=== PATIENT | female | born 1995 | race Caucasian/White ===

== ENCOUNTER 2017-04-08 15:24 | Emergency (ER) | payer OTHER ==
[~2017-04-08] VITALS: Ht 167.6 cm; Wt 117.3 kg
[2017-04-08] MEDS ORDERED: IBUP200C10 PO (15:36)
--- NOTE | 2017-04-08 16:14 | REP ---
CT Head without contrast HISTORY: Trauma COMPARISON: None There is no intraparenchymal hemorrhage, acute infarct, mass or midline shift. The ventricular system is normal in appearance. There is no extra cerebral collection. There is no fracture. The visualized sinuses are clear. IMPRESSION: There is no intracranial lesion. Signed by Cheko Arredondo MD 04/08/2017 04:05 P
--- NOTE | 2017-04-08 16:17 | REP ---
CT cervical spine without contrast HISTORY: Trauma COMPARISON: None There is no acute fracture or subluxation. There is no disc bulge or herniation. The spinal canal and neural foramina are patent. The intervertebral discs and vertebral bodies are normal in height. There is loss of the normal lordotic curve. IMPRESSION: There is no acute fracture or subluxation. Signed by Cheko Arredondo MD 04/08/2017 04:09 P
[2017-04-08] MEDS ORDERED: NORCO, ANEXSIA 5/325MG TABLET (HYDROcodone/ACETAMINOPHEN) PO ONE (17:30)
--- NOTE | 2017-04-08 17:53 | REP ---
Chest x-ray: Two views. History: Trauma. Right clavicle pain. Comparison study: No comparison study. Findings: The lungs are well inflated and free of infiltrate. The pleural angles are sharp. The heart size is normal. Pulmonary vasculature is not increased. No significant bony abnormality is seen. Impression: Negative chest x-ray. Signed by Watson Barnett MD 04/08/2017 08:31 P
[2017-04-08] MEDS ORDERED: NORCOTAB PO (18:01)
[2017-04-08 18:12] VITALS: BP 132/88
== END 2017-04-08 18:18 | disposition home or self-care (01) ==
LOC: M ED 15:24
DX: S16.1XXA Strain of muscle, fascia and tendon at neck level, initial encounter (principal); V49.59XA Passenger injured in collision with other motor vehicles in traffic accident, initial encounter; Y92.410 Unspecified street and highway as the place of occurrence of the external cause; Y93.89 Activity, other specified; Y99.8 Other external cause status; F17.210 Nicotine dependence, cigarettes, uncomplicated

== ENCOUNTER → 2017-09-16 | Outpatient (CLI) | payer OTHER | LOC: M RAD 07:21 | DX: R10.13 Epigastric pain (principal) | CPT/HCPCS: 76705 ==

== ENCOUNTER → 2018-02-14 | Outpatient (CLI) | payer OTHER, SELFPAY | LOC: M LRY 11:13 | DX: R05 Cough (principal) | CPT/HCPCS: 71046 ==

== ENCOUNTER → 2018-02-14 | Outpatient (REF) | payer OTHER | LOC: M SFHCLERA 11:20 | DX: R05 Cough (principal) ==

== ENCOUNTER → 2018-02-27 | Outpatient (REF) | payer OTHER, SELFPAY ==
[2018-02-27 17:12] LABS: APPEARANCE, URINE HAZY (CLEAR); BACTERIA, URINE AUTO NEGATIVE (NEGATIVE); BILIRUBIN, URINE AUTO NEGATIVE (NEGATIVE); BLOOD, URINE BLOOD NEGATIVE (NEGATIVE); COLOR, URINE YELLOW (YELLOW); GLUCOSE, URINE (UA) AUTO NEGATIVE (NEGATIVE); KETONE, URINE AUTO NEGATIVE (NEGATIVE); LEUKOCYTE ESTERASE, URINE AUTO 2+ (NEGATIVE); MUCUS, URINE SMALL (NEGATIVE); NITRITE, URINE AUTO NEGATIVE (NEGATIVE); PROTEIN, URINE AUTO NEGATIVE (NEGATIVE); RBC, URINE AUTO 5 /HPF (0-3); SPECIFIC GRAVITY URINE AUTO 1.027 (1.002-1.035); SQUAMOUS EPITHELIAL CELL UR AU 3 /HPF (0-6); UROBILINOGEN, URINE AUTO 0.2 mg/dL (0.0-2.0); WBC, URINE AUTO 38 /HPF (0-3)
[2018-02-27 18:48] LABS: CHLAMYDIA DNA AMPLIFICATION POSITIVE (NEGATIVE); GC DNA AMPLIFICATION NEGATIVE (NEGATIVE)
== END ==
LOC: M LAB REF 16:34
DX: N39.0 Urinary tract infection, site not specified (principal)
CPT/HCPCS: 81001

== ENCOUNTER → 2018-11-25 | Outpatient (REF) | payer BC, MEDICAID, OTHER ==
[~2018-11-25] MED LIST: HYDR-3715 PO; IBUP200C25 PO
== END ==
LOC: M LAB REF 17:18
PROVIDERS: ATTEND Advanced Practice Midwife
DX: Z12.4 Encounter for screening for malignant neoplasm of cervix (principal)

== ENCOUNTER → 2018-12-01 | Outpatient (CLI) | payer BC, MEDICAID | LOC: M SMT 08:34 | PROVIDERS: ATTEND Advanced Practice Midwife | DX: Z34.82 Encounter for supervision of other normal pregnancy, second trimester (principal); Z3A.00 Weeks of gestation of pregnancy not specified ==

== ENCOUNTER → 2018-12-10 | Outpatient (CLI) | payer MEDICAID, OTHER | LOC: M SMT 14:36 | PROVIDERS: ATTEND Advanced Practice Midwife | DX: Z36.89 Encounter for other specified antenatal screening (principal) ==

== ENCOUNTER → 2018-12-31 | Outpatient (CLI) | payer BC, MEDICAID, OTHER ==
--- NOTE | 2019-01-01 08:21 | REP ---
Obstetric ultrasound for anatomy: There is a single intrauterine gestation. position is variable. heart rate is 150 beats per minute. Cervix measures 4.4 cm length. The placenta is left lateral. There is no placenta previa or abruptio. The placenta is grade zero maturity. The amniotic fluid volume subjectively is normal. Gestational age by today's ultrasound is 19 weeks 5 days/DAVID 05/22/2019. Gestational age by LMP is 19 weeks 4 days/DAVID of 05/23/2019. weight is 315 grams/0 pounds, 11 ounces. This is the 54th percentile for 19 weeks 4 days. The following anatomic structures are identified and are unremarkable: Cranium, choroid plexus, cavum septum pellucidum, facial profile, lungs, diaphragm, stomach, cord insertion, three-vessel cord, bladder and upper lower extremities. The following anatomic structures could not be i satisfactorily visualize because of position: Cerebellum, upper lip, four-chamber heart, cardiac right and left ventricular outflow tracts, kidneys and spine. A followup study dedicated to these structures might be considered. Otherwise, there are no anomalies. Electronically Signed by Rudolph Martinez MD 01/01/2019 08:12 A
== END ==
LOC: M RAD 17:12
PROVIDERS: ATTEND Advanced Practice Midwife
DX: O99.212 Obesity complicating pregnancy, second trimester (principal); E66.9 Obesity, unspecified; Z3A.19 19 weeks gestation of pregnancy

== ENCOUNTER → 2019-02-06 | Outpatient (CLI) | payer MEDICAID ==
[~2019-02-06] MED LIST changes: +ACET-683 PO; +IBUP80TA PO; +MAPA500T2 PO; +PRENTAB9 PO; +PROV108A INH; +TUMS500C PO; +ZOFR4TAB16 PO; +ZYRTTAB8 PO
--- NOTE | 2019-02-06 19:37 | REP ---
FOLLOW-UP OB ULTRASOUND: 02/06/2019. Comparison: 12/31/2018. Clinical history: Incomplete anatomic screening on the 12/31/2018 study. Findings: Single intrauterine gestation in vertex position. There is an anterior grade 0 placenta without previa or abruption. Amniotic fluid volume is visually normal. The cervix is 4.8 cm long and closed. biometry: BPD 6 cm = 24 weeks 3 daysHC 22.4 cm = 24 weeks 3 daysAC 19.5 cm = 24 weeks 1 dayFL 4.6 cm = 25-week 2 daysHL 4 cm = 24 weeks 3 days. This gives average ultrasound age 24 weeks 4 days with EDC 05/25/2019. By initial ultrasound she is 25 weeks with EDC 05/22/2019. Estimated weight 718 grams or 1 pound 9 ounces is 36th percentile based on established dating. Heart rate 155 and regular. Cranial vault, choroid plexus, thalami, cavum septum pellucidum, cerebellum and cisterna magna were unremarkable. The nose and lips view are seen but the profile view is still not adequately visualized. lungs were intact. The four-chamber heart view and ventricular outflow tracts are again suboptimally visualized due to position. Diaphragm, left-sided stomach bubble, cord insertion, three-vessel cord, kidneys and bladder, spine in transverse and longitudinal projections and the upper lower extremities were unremarkable. Impression: 1. Single intrauterine gestation in vertex presentation with closed 4.8 cm long cervix, visually normal amniotic fluid volume and anterior grade 0 placenta without previa or abruption. 2. Size and dates show normal interval growth with heart rate 155. 3. Anatomy screen shows nose and lips view, cerebellum, kidneys and spine to satisfaction, however, the four-chamber heart view, ventricular outflow tracts and the profile view of the face are still not adequately evaluated. Electronically Signed by John Kennedy MD 02/06/2019 08:30 P
== END ==
LOC: M RAD 17:28
PROVIDERS: ATTEND Advanced Practice Midwife
DX: O99.212 Obesity complicating pregnancy, second trimester (principal); E66.9 Obesity, unspecified; Z3A.24 24 weeks gestation of pregnancy

== ENCOUNTER → 2019-02-17 | Outpatient (CLI) | payer OTHER ==
[~2019-02-17] MED LIST changes: -ACET-683 PO; -IBUP80TA PO; -MAPA500T2 PO; -PRENTAB9 PO; -PROV108A INH; -TUMS500C PO; -ZOFR4TAB16 PO; -ZYRTTAB8 PO
[2019-02-17 17:15] LABS: BASO % 0.3 % (0.0-1.0); EOS # 0.1 10^3/uL (0.0-0.5); EOS % 0.9 % (0.0-3.0); HEMATOCRIT 39.2 % (36.0-47.0); HEMOGLOBIN 12.8 g/dl (12.0-15.5); LYMPH % 19.4 % (24.0-44.0); MEAN CORPUSCULAR HEMOGLOBIN 30.4 pg (27.0-33.0); MEAN CORPUSCULAR HGB CONC 32.7 g/dl (32.0-36.5); MEAN CORPUSCULAR VOLUME 93.1 fl (80.0-96.0); MONO # 0.6 10^3/uL (0.0-0.8); NEUTROPHILS # 7.6 10^3/uL (1.5-8.5); NEUTROPHILS % 72.4 % (36.0-66.0); PLATELET COUNT, AUTOMATED 235 10^3/uL (150-450); RED BLOOD COUNT 4.21 10^6/uL (4.00-5.40); WHITE BLOOD COUNT 10.4 10^3/uL (4.0-10.0)
== END ==
LOC: M SMT 12:59
PROVIDERS: ATTEND Advanced Practice Midwife
DX: O99.212 Obesity complicating pregnancy, second trimester (principal); Z3A.00 Weeks of gestation of pregnancy not specified
CPT/HCPCS: 36415; 82950; 85025; 86850; 86900; 86901; J2790

== ENCOUNTER → 2019-02-27 | Outpatient (CLI) | payer MEDICAID ==
--- NOTE | 2019-02-28 09:27 | REP ---
Obstetric sonography: History: Supervision of followup anatomy, facial profile, four-chamber heart and outflow tracts. Sonographic findings: Scanning through the gravid uterus demonstrates a viable single intrauterine gestation in a cephalic lie. motion is observed and heart rate is recorded at 161 beats per minute. A grade 0 anterior placenta is seen without evidence of previa or abruption. Amniotic fluid is subjectively normal. Closed cervical length measures 4.3 cm, viewed transabdominally. There has been appropriate interval growth. No extrauterine abnormalities observed. There is an echogenic focus in the left and right ventricle likely chordae tendineae. The following anatomic structures are identified today and felt to be unremarkable: cranium, cavum, cerebellum and posterior fossa, face and profile, lungs, four-chamber heart with left and right ventricular outflow tract views, diaphragm, left-sided stomach, abdominal wall cord insertion, three-vessel cord, kidneys and bladder, lower extremities. Biometry chart: BPD 6.8 cm = 27 weeks 2 days Head circumference 25.7 cm = 28 weeks 0 days Abdominal circumference 24.1 cm = 28 weeks 3 days Femur length 5.2 cm = 27 weeks 5 days Humeral length 4.7 cm = 27 weeks 5 days HC/AC ratio normal 1.07. Cephalic index normal 0.72. Estimated weight 1170 grams, 2 pounds 9 ounces, 46th percentile for 27 week 6 days. VALE normal 14.0 cm. S/D ratio normal 3.85. Impression: Viable single intrauterine gestation at 27 weeks 6 days by today's composite sonographic criteria. Expected gestational age estimate based on prior sonography is 28 weeks 0 days. DAVID by prior sonography 22 May 2019. Appropriate interval growth. In conjunction with the prior study, anatomic survey is felt to be complete. Electronically Signed by Watson Barnett MD 02/28/2019 09:46 A
== END ==
LOC: M RAD 17:25
PROVIDERS: ATTEND Obstetrics & Gynecology
DX: Z34.82 Encounter for supervision of other normal pregnancy, second trimester (principal); Z3A.27 27 weeks gestation of pregnancy

== ENCOUNTER → 2019-03-20 | Outpatient (CLI) | payer MEDICAID ==
--- NOTE | 2019-03-20 15:56 | REP ---
Obstetric sonography: History: 30+ weeks with injury in a fall. Biophysical profile. Findings: Limited stature sonography is performed. A single living intrauterine fetus is seen in a cephalic lie. Placenta is anterior grade 1 without evidence of previa or abruption. Closed cervical length is 6.2 cm measured transabdominally. heart rate is recorder 136 beats per minute. Amniotic fluid is subjectively low normal. VALE is 8.5 cm (8.8-23.8 cm). Biophysical profile score is eight out of a possible eight. SD ratio is normal at 3.24 are (2.50-3.50. Impression: Low normal amniotic fluid. Otherwise unremarkable limited obstetric sonography. No traumatic abnormality noted. Electronically Signed by Watson Barnett MD 03/20/2019 02:50 P
== END ==
LOC: M RAD 13:49
PROVIDERS: ATTEND Advanced Practice Midwife
DX: O9A.213 Injury, poisoning and certain other consequences of external causes complicating pregnancy, third trimester (principal); W00.9XXA Unspecified fall due to ice and snow, initial encounter; Z3A.00 Weeks of gestation of pregnancy not specified

== ENCOUNTER → 2019-03-27 | Outpatient (CLI) | payer MEDICAID ==
--- NOTE | 2019-03-27 14:12 | REP ---
Obstetric sonography: History: Elevated blood pressure. Followup anatomy. Findings: Scanning demonstrates a viable single intrauterine gestation in a cephalic lie. motion is observed and heart rate is recorded at 139 beats per minute. An anterior grade 1 placenta is seen without evidence of previa or abruption. Amniotic fluid is subjectively normal. No extrauterine abnormalities observed. There has been appropriate interval growth. Closed cervical length could not be measured due to head position. The following anatomic structures are identified and felt to be unremarkable: cranium, cavum, four-chamber heart, left-sided stomach, kidneys and bladder. Biometry chart: BPD 7.7 cm = 30 weeks 5 days Head circumference 28.2 cm = 31 weeks 0 days Abdominal circumference 26.6 cm = 30 weeks 5 days Femur length 5.9 cm = 30 weeks 6 days Humeral length 5.3 cm = 30 weeks 6 days HC/AC normal 1.06. Cephalic index normal 0.76. Estimated weight 1645 grams, 3 pounds 10 ounces, 22nd percentile for 31 weeks 6 days. VALE normal 11.9 cm. Biophysical profile score 8 out of a possible 8. S/D ratio in the umbilical cord artery by Doppler normal 3.14 Impression: Viable single intrauterine gestation at 30 weeks 6 days by today's composite sonographic criteria. Expected gestational age estimate based on prior sonography is 32 weeks 0 days. DAVID by prior sonography May 22, 2019. Electronically Signed by Watson Barnett MD 03/27/2019 06:38 P
== END ==
LOC: M RAD 09:20
PROVIDERS: ATTEND Advanced Practice Midwife
DX: Z36.9 Encounter for antenatal screening, unspecified (principal); Z3A.30 30 weeks gestation of pregnancy

== ENCOUNTER → 2019-04-01 | Outpatient (CLI) | payer MEDICAID ==
[2019-04-01 13:19] LABS: HEMATOCRIT 42.7 % (36.0-47.0); HEMOGLOBIN 13.8 g/dl (12.0-15.5); MEAN CORPUSCULAR HEMOGLOBIN 29.8 pg (27.0-33.0); MEAN CORPUSCULAR HGB CONC 32.3 g/dl (32.0-36.5); MEAN CORPUSCULAR VOLUME 92.2 fl (80.0-96.0); PLATELET COUNT, AUTOMATED 257 10^3/uL (150-450); RED BLOOD COUNT 4.63 10^6/uL (4.00-5.40)
[2019-04-01 13:22] LABS: ALT/SGPT 22 U/L (12-78); GLOMERULAR FILTRATION RATE > 60.0 (>60); LDH LACTATE DEHYDROGENASE 142 U/L (84-246); URIC ACID 4.4 MG/DL (2.6-6.0)
== END ==
LOC: M SMT 11:03
PROVIDERS: ATTEND Advanced Practice Midwife
DX: O13.3 Gestational [pregnancy-induced] hypertension without significant proteinuria, third trimester (principal); Z3A.00 Weeks of gestation of pregnancy not specified

== ENCOUNTER → 2019-04-03 | Outpatient (CLI) | payer BC, MEDICAID ==
--- NOTE | 2019-04-03 17:30 | REP ---
OB ULTRASOUND, BIOPHYSICAL PROFILE: Real-time sonographic evaluation of the gravid uterus is performed. There is a single living intrauterine gestation. The estimated gestational age is 32 weeks 6 days, EDC 03/23/2020. Cervix is closed and measures 3.1 cm in length. heart rate 140 beats per minute. Amniotic fluid with normal limits. VALE 13.5 within normal range of 8.3 to 24.5. Biophysical profile score 8/8. SD ratio 2.11 within normal range of 2.05 to 3.05, RI 0.53 below normal range of 0.59 to 0.75. position is vertex. Placenta is anterior and grade 1 with no previa or abruption. Electronically Signed by Rudolph Waggoner MD 04/06/2019 10:12 A
== END ==
LOC: M RAD 15:12
PROVIDERS: ATTEND Advanced Practice Midwife
DX: O13.3 Gestational [pregnancy-induced] hypertension without significant proteinuria, third trimester (principal); Z3A.32 32 weeks gestation of pregnancy

== ENCOUNTER → 2019-04-16 | Outpatient (CLI) | payer MEDICAID ==
[~2019-04-16] MED LIST changes: +MAPA500T2 PO; +PRENTAB9 PO; +PROV108A INH; +TUMS500C PO; +ZOFR4TAB16 PO; +ZYRTTAB8 PO
--- NOTE | 2019-04-16 18:39 | REP ---
OB ULTRASOUND: Real-time sonographic evaluation of the gravid uterus is performed. There is a single living intrauterine gestation. The estimated gestational age is 34 weeks 5 days. EDC 05/23/2019. Today's measurements indicate appropriate growth. BPD 82 mm = 33 weeks 1 day, 27th percentile. HC 293 mm = 32 weeks 2 days, 13th percentile. AC 281 mm = 32 weeks 1 day, 12th percentile. Femur length 69 mm = 35 weeks 4 days, at the 63rd percentile. HC/AC ratio 1.04 within normal range. Estimated weight 2158 grams 22nd percentile. Cervix is closed and measures 3.8 cm in length. heart rate 136 beats per minute. Amniotic fluid with normal limits, VALE 15.7 within normal range of 8.0 to 24.9. Biophysical profile score 8/8. SD ratio 2.96 within normal range of 2.0-3.0, RI 0.66 within normal range of 0.59 to 0.75. Visualized anatomy today includes stomach, three vessel cord, kidney and bladder which are all grossly unremarkable. position is vertex. Placenta is anterior and grade 1 with no previa or abruption. Electronically Signed by Rudolph Waggoner MD 04/16/2019 06:40 P
== END ==
LOC: M RAD 16:06
PROVIDERS: ATTEND Advanced Practice Midwife
DX: O13.3 Gestational [pregnancy-induced] hypertension without significant proteinuria, third trimester (principal); Z3A.34 34 weeks gestation of pregnancy

== ENCOUNTER → 2019-04-20 | Outpatient (REF) | payer OTHER, MEDICAID | LOC: M SFHCWAGY 16:42 | PROVIDERS: ATTEND Advanced Practice Midwife | DX: Z36.85 Encounter for antenatal screening for Streptococcus B (principal); O13.3 Gestational [pregnancy-induced] hypertension without significant proteinuria, third trimester ==

== ENCOUNTER → 2019-04-24 | Outpatient (CLI) | payer MEDICAID, OTHER ==
--- NOTE | 2019-04-24 17:15 | REP ---
OB ULTRASOUND, BIOPHYSICAL PROFILE: Real-time sonographic evaluation of gravid uterus performed. There is a single living intrauterine gestation, estimated gestational age 35 weeks 6 days, EDC 05/23/2019. heart rate is 125 beats per minute. Amniotic fluid is within normal limits. The VALE is 14.7 within normal range of 7.7 - 24.9. Biophysical profile score is 8/8. S/D ratio 2.05 within normal range of 2.0 - 3.0. RI 0.51 below normal range of 0.59 - 0.75. position is vertex. Placenta is anterior and grade 1-2 with no previa or abruption. Electronically Signed by Rudolph Waggoner MD 04/27/2019 04:15 P
== END ==
LOC: M RAD 13:11
PROVIDERS: ATTEND Advanced Practice Midwife
DX: O13.3 Gestational [pregnancy-induced] hypertension without significant proteinuria, third trimester (principal)

== ENCOUNTER 2019-05-02 08:00 | Inpatient (IN) | payer MEDICAID ==
[2019-05-02] VITALS (20 sets, daily range): BP systolic 107–175; BP diastolic 59–89
[~2019-05-02] VITALS: Ht 165.1 cm; Wt 144.8 kg
[2019-05-02] MEDS ORDERED: LACTATED RINGER'S 1000 ML IV STA (11:32)
[2019-05-02 11:47] LABS: HEMOGLOBIN 14.2 g/dl (12.0-15.5); MEAN CORPUSCULAR HEMOGLOBIN 30.1 pg (27.0-33.0); MEAN CORPUSCULAR VOLUME 91.3 fl (80.0-96.0); PLATELET COUNT, AUTOMATED 222 10^3/uL (150-450); RED BLOOD COUNT 4.71 10^6/uL (4.00-5.40); WHITE BLOOD COUNT 11.7 10^3/uL (4.0-10.0)
[2019-05-02 11:54] LABS: ALT/SGPT 16 U/L (12-78); CREATININE FOR GFR 0.64 MG/DL (0.55-1.30); GLOMERULAR FILTRATION RATE > 60.0 (>60); LDH LACTATE DEHYDROGENASE 163 U/L (84-246); URIC ACID 4.9 MG/DL (2.6-6.0)
[2019-05-02] MEDS ORDERED: miSOPROStol 25 MCG 1/4 TAB (S0191) As Ordered ONE (12:08)
[2019-05-02] MEDS ORDERED: miSOPROStol 25 MCG 1/4 TAB (S0191) PV ONE ×2 (12:15→18:15)
[2019-05-02] MEDS: LR 1,000 ML IV SCH (12:48)
[2019-05-02] MEDS: ACETAMINOPHEN 500 MG TAB PO PRN (13:10)
[2019-05-03] VITALS (43 sets, daily range): BP systolic 92–151; BP diastolic 51–97
[2019-05-03] MEDS ORDERED: OXYTOCIN DRIP 30 UNITS in IV 1 EA IV SCH (07:45)
[2019-05-03] MEDS ORDERED: SLF 3 ML SYR IV PRN (08:30)
[2019-05-03] MEDS: ACETAMINOPHEN 500 MG TAB PO PRN (12:31)
[2019-05-03] MEDS: LR 1,000 ML IV SCH (12:50)
[2019-05-03] MEDS ORDERED: FENTANYL 2MCG/ML ROPIVACAINE 0.2% IN 0.9% NACL 100ML IVBAG As Ordered ONE (12:53)
[2019-05-03] MEDS ORDERED: SLF 3 ML SYR IV SCH (14:00)
[2019-05-03] MEDS ORDERED: diphenhydrAMINE INJ 50MG/ML VIAL (J1200) IV PRN (14:15)
[2019-05-03] MEDS ORDERED: ePHEDrine SULFATE 25 MG/5 ML(5MG/ML) SYRINGE IV PRN (14:15)
[2019-05-03] MEDS ORDERED: ONDANSETRON 4MG/2ML VIAL (J2405) IV PRN (14:15)
[2019-05-03] MEDS ORDERED: NALOXONE INJ 0.4 MG/1 ML VIAL (J2310) IV PRN (14:15)
[2019-05-03] MEDS ORDERED: LACTATED RINGER'S 1000 ML IV PRN (14:15)
[2019-05-03] MEDS ORDERED: EPIDURAL COMMENT XX SCH (14:15)
[2019-05-03] MEDS ORDERED: REFRIGERATOR IV KEYS XX PRN (14:15)
[2019-05-03] MEDS ORDERED: EPIDURAL/PCA KEYS XX PRN (14:15)
[2019-05-03] MEDS ORDERED: TERBUTALINE SULFATE 1 MG/ML VIAL (J3105) As Ordered ONE (18:21)
[2019-05-03] MEDS: FENTANYL/ROPIVACAINE/NACL BAG 100 ML EPIDURAL SCH ×2 (18:22→22:20)
[2019-05-03] MEDS ORDERED: TERBUTALINE SULFATE 1 MG/ML VIAL (J3105) SC ONE (18:45)
[2019-05-04] VITALS (8 sets, daily range): BP systolic 105–120; BP diastolic 56–76
[2019-05-04] MEDS ORDERED: LR 1,000 ML IV SCH (01:22)
[2019-05-04] MEDS ORDERED: OXYTOCIN DRIP 30 UNITS in IV 1 EA IV SCH (01:22)
[2019-05-04] MEDS ORDERED: ACETAMINOPHEN 500 MG TAB PO PRN (01:30)
[2019-05-04] MEDS ORDERED: ceFAZolin SOD 3 GM in IV 1 EA IV ONE (01:30)
[2019-05-04] MEDS ORDERED: DOCUSATE SODIUM 100 MG CAP PO PRN (01:30)
[2019-05-04] MEDS ORDERED: PROMETHAZINE 25 MG TAB PO PRN (01:30)
[2019-05-04] MEDS ORDERED: DIBUCAINE 1% OINTMENT 30GM TOP PRN (01:30)
[2019-05-04] MEDS ORDERED: RHOGAM 300 MCG (1500 IU) INJ (J2790) IM SCH (01:30)
[2019-05-04] MEDS ORDERED: IBUPROFEN 600 MG TAB PO PRN (01:30)
[2019-05-04] MEDS ORDERED: ONDANSETRON 4MG/2ML VIAL (J2405) IV PRN (01:30)
[2019-05-04] MEDS ORDERED: ACETAMINOPHEN TAB 650MG DOSE (2X325MG) PO PRN (01:30)
[2019-05-04] MEDS ORDERED: MEASLES,MUMPS,RUBELLA VACCINE INJ (MMR-II) (90707) SC SCH (01:30)
[2019-05-04] MEDS ORDERED: ceFAZolin SOD 2 GM in IV 1 EA IV ONE (01:45)
[2019-05-04] MEDS ORDERED: ceFAZolin SOD 1 GM in D5W MINI-BAG PLUS 50 ML IV ONE (02:30)
[2019-05-04] MEDS: PRENATAL VITAMINS CHEWABLE TABLET PO SCH (08:21)
[2019-05-04] MEDS: IBUPROFEN 800 MG TAB PO PRN ×2 (08:22→19:32)
[2019-05-04] MEDS ORDERED: RHOGAM 300 MCG (1500 IU) INJ (J2790) IM ONE (09:00)
[2019-05-05] MEDS ORDERED: IBUP80TA PO (05:53)
[2019-05-05] MEDS ORDERED: ACET-683 PO (05:53)
[2019-05-05 06:00] VITALS: BP 114/66
[2019-05-05] MEDS: IBUPROFEN 800 MG TAB PO PRN ×2 (07:48→15:22)
[2019-05-05] MEDS: PRENATAL VITAMINS CHEWABLE TABLET PO SCH ×2 (07:48→07:50)
== END 2019-05-05 19:10 | disposition home or self-care (01) | DRG 560 ==
LOC: M LDI 08:00 → M OBS 05-04 04:06
PROVIDERS: ADMIT Obstetrics & Gynecology; ATTEND Obstetrics & Gynecology
PROC: 3E0P7GC Introduction of Other Therapeutic Substance into Female Reproductive, Via Natural or Artificial Opening (ICD-10-PCS; 2019-05-02)
PROC: 10E0XZZ Delivery of Products of Conception, External Approach (ICD-10-PCS; principal; 2019-05-04)
PROC: 0KDM0ZZ Extraction of Perineum Muscle, Open Approach (ICD-10-PCS; 2019-05-04)
DX: O13.4 Gestational [pregnancy-induced] hypertension without significant proteinuria, complicating childbirth (principal); K61.0 Anal abscess; E66.9 Obesity, unspecified; Z3A.37 37 weeks gestation of pregnancy; O99.214 Obesity complicating childbirth; O69.1XX0 Labor and delivery complicated by cord around neck, with compression, not applicable or unspecified; O99.62 Diseases of the digestive system complicating childbirth; Z37.0 Single live birth

== ENCOUNTER → 2019-10-26 | Outpatient (REF) | payer OTHER ==
[~2019-10-26] MED LIST changes: +ACET-683 PO; +DOK1CAP7 PO; +FAMO1TAB25 PO; +IBUP80TA PO
[2019-10-27 13:24] LABS: CHLAMYDIA DNA AMPLIFICATION NEGATIVE (NEGATIVE); GC DNA AMPLIFICATION NEGATIVE (NEGATIVE)
== END ==
LOC: M SFHCWAGY 10:17
PROVIDERS: ATTEND Obstetrics & Gynecology
DX: O99.211 Obesity complicating pregnancy, first trimester (principal)

== ENCOUNTER → 2019-12-25 | Outpatient (CLI) | payer OTHER ==
[~2019-12-25] MED LIST changes: -DOK1CAP7 PO; -FAMO1TAB25 PO
--- NOTE | 2020-02-02 09:27 | REP ---
OBSTETRIC ULTRASOUND FOR ANATOMY Delay in reporting results from malfunction of the hospital computer system as the result of a malware attack. FINDINGS: There is a single intrauterine gestation in a breech presentation. The placenta is posterior, grade 1, without previa and without abruptio. heart rate is 142 beats per minute. Amniotic fluid volume subjectively is normal. Cervix measures 3.6 cm in length. The composite gestational age is 21 weeks 2 days. Estimated date of delivery (DAVID) 05/04/2020. weight is 402 grams. This is the 30th percentile. The following structures are identified and are unremarkable: Cisterna magna, cavum septum pellucidum, thalami, spine, stomach, kidneys, four chamber heart, cardiac right and left ventricular outflow tracts, bladder, three-vessel cord, cord insertion, upper and lower extremities, and facial profile. The upper lip was not optimally demonstrated. A follow-up study dedicated to this structure might be considered. Otherwise, there are no anomalies. MTDD
== END ==
LOC: M WHC 14:34
PROVIDERS: ATTEND Advanced Practice Midwife
DX: O32.1XX0 Maternal care for breech presentation, not applicable or unspecified (principal); Z3A.21 21 weeks gestation of pregnancy

== ENCOUNTER 2020-01-02 20:48 | Outpatient (CLI) | payer OTHER ==
[~2020-01-02] VITALS: Ht 167.6 cm; Wt 138.0 kg
[2020-01-02 21:10] VITALS: BP 125/72
--- NOTE | 2020-01-02 21:47 | IPNPDOC ---
Obstetrical Progress Note Date of Service Jan 02, 2020 Subjective S: 24-year-old 3, para 2 presents at complaints of vaginal bleeding, leakage fluid. She reports recent intercourse approximately 4 hours ago. She reports active movements. Denies any contractions. O: Vital signs stable. She is afebrile. Reassuring tracing, heart rate 140s, appropriate for dates. Gen. appearance is well-appearing, no acute distress Abdomen soft, gravid, nontender. Speculum exam: Approximately 2 cm right labial laceration not actively bleeding. Speculum exam cervix was closed, no pooling of fluid. Transabdominal ultrasound: Active fetus with cardiac activity. Breech presentation with adequate fluid Assessment: 24-year-old 3, para 2 with vaginal bleeding appears to be from right labial laceration following intercourse. Reassuring status. Plan: labor precautions. Wound care instructions. Follow-up at next OB appointment Objective Vital Signs Date Time Temp Pulse Resp B/P (MAP) Pulse Ox O2 Delivery O2 Flow Rate FiO2 01/02/20 21:10 97.9 72 125/72 (89) Assessment Heart Rate (FHR): 140 Assessment and Plan Age: 24 : 3 Livin Status: Reassuring STEPHON DENISE MD. Jan 02, 2020 21:47
== END 2020-01-02 21:53 | disposition home or self-care (01) ==
LOC: M LDO 20:48
PROVIDERS: ATTEND Obstetrics & Gynecology
DX: O26.859 Spotting complicating pregnancy, unspecified trimester (principal); Z3A.00 Weeks of gestation of pregnancy not specified

== ENCOUNTER → 2020-04-06 | Outpatient (REF) | payer OTHER, MEDICAID | LOC: M SFHCWAGY 12:59 | PROVIDERS: ATTEND Obstetrics & Gynecology | DX: Z34.93 Encounter for supervision of normal pregnancy, unspecified, third trimester (principal); Z3A.36 36 weeks gestation of pregnancy ==

== ENCOUNTER → 2020-04-19 | Outpatient (CLI) | payer OTHER ==
--- NOTE | 2020-04-19 14:47 | REP ---
INDICATION: GROWTH/VALE. COMPARISON: 12/25/2019. TECHNIQUE: Real-time sonographic evaluation of the gravid uterus performed. FINDINGS: Estimated gestational age is37 weeks 6 days, EDC 05/04/2020. Today's measurements indicate appropriate growth, although abdominal circumferences somewhat greater than expected. Presentation: Cephalic Placenta posterior, grade 3, without evidence of placenta previa. heart rate is recorded at 163 beats per minute. Amniotic fluid is subjectively normal. VALE 14.5, normal range 7.3-24.0. Biometry chart: BPD: 90 mm, 36 weeks 2 days, 28th percentile. HC: 343 mm, 39 weeks 4 days, 78th percentile AC: 374 mm, 41 weeks 3 days, greater than 95th percentile Femur length: 73 mm, 37 weeks 4 days, 45th percentile HC to AC ratio: 0.92, normal range 0.91-1.10. Estimated weight: 3866g, over 97th percentile. IMPRESSION: Viable single intrauterine gestation as above. <Electronically signed by Rudolph Waggoner > 04/19/20 [id number]
== END ==
LOC: M WHC 13:35
PROVIDERS: ATTEND Advanced Practice Midwife
DX: O26.843 Uterine size-date discrepancy, third trimester (principal); Z3A.37 37 weeks gestation of pregnancy

== ENCOUNTER 2020-04-27 07:22 | Inpatient (IN) | payer OTHER, MEDICAID ==
[~2020-04-27] VITALS: Ht 165.1 cm; Wt 145.5 kg
[2020-04-27] VITALS (37 sets, daily range): BP systolic 106–145; BP diastolic 55–107
[2020-04-27] MEDS ORDERED: FAMO1TAB25 PO (07:56)
[2020-04-27] MEDS ORDERED: miSOPROStol 50 MCG 1/2 TAB (S0191) PO ONE (09:15)
--- NOTE | 2020-04-27 09:52 | HPE ---
HISTORY AND PHYSICAL DATE OF ADMISSION: 04/27/2020 HISTORY OF PRESENT ILLNESS: Yolande is a 24-year-old 3 para 1-1-0-2 at 39 weeks gestation. She had an EDC of 05/04/20 based on first trimester ultrasound. She presents to Labor and Delivery today for induction of labor at 39 weeks due to a large gestational age . She denies regular painful contractions, vaginal bleeding and leakage of fluid, the fetus has been active. Her care initiated at [facility] in the first trimester. Her course was complicated by a reported history of a shoulder dystocia in her first but with further questioning and discussion it does not appear to have been a shoulder dystocia but rather an OP presentation and a prolonged second stage with a vacuum assisted vaginal delivery. She also has a history of gestational hypertension and polycystic ovarian syndrome. She did have baseline labs that were normal and has maintained normotensive pressures throughout her . She has been taking aspirin 81 mg daily. OBSTETRIC HISTORY: In September 2013, 36 weeks gestation, 6 pounds, 14 ounce female, vacuum assisted vaginal delivery at [facility] following PPROM meconium stained fluid. April 2019, 37 weeks and 2/7 days, 5 pounds, 6 ounce female, spontaneous vaginal delivery at [facility]. Gestational hypertension. OBSTETRIC LABS: A negative. Antibody screen negative. Syphilis negative. Gonorrhea and chlamydia negative. Hepatitis B negative. Hepatitis C nonreactive. HIV nonreactive. Rubella immune. Gestational diabetic screening 112. GBS negative. PAST MEDICAL HISTORY: 1. Allergic asthma. 2. Seasonal allergies. 3. Polycystic ovarian syndrome. 4. depression. 5. Gestational hypertension. PAST SURGICAL HISTORY: 1. Tonsillectomy and adenoidectomy. 2. Tympanostomy. 3. Cholecystectomy. 4. Arm surgery. FAMILY HISTORY: Myocardial infarction, blood cancer, hypertension, heart disease, diabetes, depression, anxiety, bipolar, leukemia. CURRENT MEDICATIONS: 1. vitamin. ALLERGIES: Flagyl. OBJECTIVE: VITAL SIGNS: Temperature 98.1, pulse 94, respirations 18, BP 130/78. GENERAL: She is alert and oriented x3. She is smiling and talkative, in no apparent distress. The heart rate is 135 with moderate variability, positive accelerations, negative decelerations. Contractions palpate mild. They are every 3 to 5 minutes. ABDOMEN: Her abdomen is gravid, cephalic presentation. Estimated weight 3800 to 4000 grams. GENITALIA: Sterile vaginal exam: 3 cm dilated, 50% effaced, ballotable station, posterior, soft, no show with the exam. ASSESSMENT: Intrauterine at 39 weeks. heart rate Category 1. PLAN: Admit patient to Labor and Delivery with consult with Dr. Cheko Coates for induction of labor. The risks, benefits and alternatives have been reviewed with the patient and her mother. All of their questions have been answered. I have verbally consented the patient for emergency surgery and blood products if necessary. Routine labs. Out of bed ad kaitlynn, regular diet at this time. I will administer one dose of p.o. Misoprostol for cervical ripening. Will likely start Pitocin. The patient is desiring an epidural when she is uncomfortable and active labor. Will consider assisted rupture of membranes once comfortable with epidural or as labor augmentation. I do anticipate cervical ripening, labor and a spontaneous vaginal delivery. Risks related to potential shoulder dystocia have been reviewed with the patient and in lieu of investigating a prior history of shoulder dystocia, again it is noted that it does not appear that there was a shoulder dystocia but in fact presentation with prolonged second stage vacuum assisted vaginal delivery.
[2020-04-27 10:33] LABS: HEMATOCRIT 42.2 % (36.0-47.0); HEMOGLOBIN 13.9 g/dl (12.0-15.5); MEAN CORPUSCULAR HGB CONC 32.9 g/dl (32.0-36.5); MEAN CORPUSCULAR VOLUME 91.1 fl (80.0-96.0); PLATELET COUNT, AUTOMATED 254 10^3/uL (150-450); RED BLOOD COUNT 4.63 10^6/uL (4.00-5.40); WHITE BLOOD COUNT 12.1 10^3/uL (4.0-10.0)
[2020-04-27] MEDS ORDERED: OXYTOCIN DRIP 30 UNITS in IV 1 EA IV SCH ×2 (14:15→22:09)
[2020-04-27] MEDS: LR 1,000 ML IV SCH ×2 (15:15→17:42)
[2020-04-27] MEDS ORDERED: FAMOTIDINE 20 MG TAB PO ONE ×2 (17:00)
[2020-04-27] MEDS ORDERED: FENTANYL 2MCG/ML ROPIVACAINE 0.2% IN 0.9% NACL 100ML IVBAG As Ordered ONE (17:43)
[2020-04-27] MEDS ORDERED: EPIDURAL COMMENT XX SCH (18:45)
[2020-04-27] MEDS ORDERED: REFRIGERATOR IV KEYS XX PRN (18:45)
[2020-04-27] MEDS ORDERED: ONDANSETRON 4MG/2ML VIAL IV PRN (18:45)
[2020-04-27] MEDS ORDERED: EPIDURAL/PCA KEYS XX PRN (18:45)
[2020-04-27] MEDS ORDERED: diphenhydrAMINE 50MG/ML VIAL (J1200) IV PRN (18:45)
[2020-04-27] MEDS ORDERED: ePHEDrine SULFATE 25 MG/5 ML(5MG/ML) SYRINGE IV PRN (18:45)
[2020-04-27] MEDS ORDERED: FENTANYL/ROPIVACAINE/NACL BAG 100 ML EPIDURAL SCH (18:45)
[2020-04-27] MEDS ORDERED: NALOXONE INJ 0.4MG/1ML VIAL (J2310 PER 1MG) IV PRN (18:45)
[2020-04-27] MEDS ORDERED: LACTATED RINGER'S 1000 ML IV PRN (18:45)
[2020-04-27] MEDS ORDERED: ACETAMINOPHEN TAB 650MG DOSE (2X325MG) PO PRN (22:15)
[2020-04-27] MEDS ORDERED: BENZOCAINE 20% HEMORRHOIDAL OINTMENT 28GM TUBE TOP PRN (22:15)
[2020-04-27] MEDS ORDERED: RHOGAM 300 MCG (1500 IU) INJ (J2790) IM SCH (22:15)
[2020-04-27] MEDS ORDERED: METHYLERGONOVINE MALEATE 0.2 MG TAB PO PRN (22:15)
[2020-04-27] MEDS ORDERED: DOCUSATE SODIUM 100MG CAPSULE PO PRN (22:15)
[2020-04-27] MEDS ORDERED: IBUPROFEN 600MG TAB PO PRN (22:15)
[2020-04-27] MEDS ORDERED: MEASLES,MUMPS,RUBELLA VACCINE INJ (MMR-II) (90707) SC SCH (22:15)
--- NOTE | 2020-04-27 22:37 | DN ---
DELIVERY NOTE DATE OF DELIVERY: 04/27/2020 TIME OF : 2149 DESCRIPTION OF DELIVERY: Yolande is a 24-year-old, 3, para 3, 0, 0, 3 now, who was admitted to labor and delivery for induction of labor. Misoprostol and I.V. Pitocin was used and labor did ensue. She did utilize an epidural for her labor coping. She reached full dilation at 2140. She pushed to a normal spontaneous vaginal delivery of a live female in OA position with restitution to LOT position at 215. There was mild shoulder dystocia, that was relieved with Deandra' maneuver and gentle downward traction. Corpus immediately followed. The 's mouth and nares were bulb suctioned, and she was placed on the maternal abdomen, crying and active. The cord was clamped x2 once pulsations ceased and cut by the maternal grandmother under my direction. A spontaneous expulsion of an intact placenta with three-vessel cord by Schultze mechanism was at 2153. Uterine hemostasis was achieved with I.V. Pitocin, rapid infusion and uterine fundal massage. Estimated blood loss 350 mL. Perineum and vagina inspected, noted to be intact. female weighed 9 pounds 2 ounces (4130 grams), Apgars 8 and 9. Mom is going to breastfeed her daughter and she has decided to name her Dorian. At the close of delivery, lab counts and instrument counts were correct and verified.
[2020-04-28 00:30] VITALS: BP 115/59
[2020-04-28 06:00] VITALS: BP 133/69
[2020-04-28] MEDS: PRENATAL VITAMINS CHEWABLE TABLET PO SCH (10:43)
[2020-04-28] MEDS: IBUPROFEN 800 MG TAB PO PRN ×2 (10:44→18:21)
[2020-04-28] MEDS: ACETAMINOPHEN 500 MG TAB PO PRN ×2 (13:14→21:07)
[2020-04-28 17:56] VITALS: BP 133/81
[2020-04-29] MEDS: ACETAMINOPHEN 500 MG TAB PO PRN ×2 (03:57→15:33)
[2020-04-29 06:01] VITALS: BP 116/62
--- NOTE | 2020-04-29 07:12 | IPNPDOC ---
Progress Note Date of Service: Apr 29, 2020 Day#: 2 Progress Note PPD 2 SUBJECT: Yolande is a 24yo s/p uncomplicated at 2150 on 04/27 after undergoing IOL at term. She is doing well day # 2. She has been ambulating, voiding spontaneously without issue and tolerating regular diet. Breast feeding without issue. Reports lochia is like a normal period, tapering. No f/c/n/v/CP/SOB. OBJECTIVE: VITAL SIGNS: Within normal limits, afebrile. Alert and oriented times three. Abdomen: Fundus firm at U-2. Soft, NTTP. Extremities: no pain with palpation of calves ASSESSMENT: Yolande is a 24yo s/p uncomplicated at 2150 on 04/27 after undergoing IOL at term. She is doing well day # 2. Vitals within normal limits, afebrile, hemodynamically stable with no evidence of infection. PLAN: 1. Discharge to home today. 2. Tylenol and Motrin for pain. 3. Encourage breast feeding and ambulation. 4. Desires Mirena for contraception 5. Routine PP visit in 6 weeks in clinic. 6. Discussed return precautions at length. Rita Chavez MD VS, I&O, 24H, Fishbone Vital Signs/I&O Vital Signs Date Time Temp Pulse Resp B/P (MAP) Pulse Ox O2 Delivery O2 Flow Rate FiO2 04/29/20 06:01 98.4 75 18 116/62 (80) 04/28/20 17:56 97 Room Air Rita Chavez MD Apr 29, 2020 07:12
[2020-04-29] MEDS ORDERED: IBUP80TA PO (07:14)
[2020-04-29] MEDS ORDERED: DOK1CAP7 PO (07:14)
--- NOTE | 2020-04-29 07:16 | DS.PDOC ---
Discharge Summary General Date of Admission Apr 27, 2020 at 07:22 Date of Discharge Apr 29, 2020 Discharge Summary PROCEDURES PERFORMED DURING STAY: spontaneous vaginal delivery ADMITTING DIAGNOSES: 1. IOL at term DISCHARGE DIAGNOSES: 1. IOL at term, delivered COMPLICATIONS/CHIEF COMPLAINT: Induction. HISTORY OF PRESENT ILLNESS/HOSPITAL COURSE: Yolande is a 24yo s/p uncomplicated at 2150 on 04/27 after undergoing IOL at term. She is doing well day # 2. Vitals within normal limits, afebrile, hemodynamically stable with no evidence of infection. DISCHARGE MEDICATIONS: Please see below. ALLERGIES: Please see below. PHYSICAL EXAMINATION ON DISCHARGE: VITAL SIGNS: Within normal limits, afebrile. Alert and oriented times three. Abdomen: Fundus firm at U-2. Soft, NTTP. Extremities: no pain with palpation of calves LABORATORY DATA: Please see below. ACTIVITY: As tolerated, vaginal rest 6 weeks DIET: regular DISPOSITION: home DISCHARGE PLAN/INSTRUCTIONS: 1. Discharge to home today. 2. Tylenol and Motrin for pain. 3. Encourage breast feeding and ambulation. 4. Desires Mirena for contraception 5. Routine PP visit in 6 weeks in clinic. 6. Discussed return precautions at length. DISCHARGE CONDITION: Stable TIME SPENT ON DISCHARGE: Greater than 20 minutes. Rita Chavez MD Vital Signs/I&Os Vital Signs Date Time Temp Pulse Resp B/P (MAP) Pulse Ox O2 Delivery O2 Flow Rate FiO2 04/29/20 06:01 98.4 75 18 116/62 (80) 04/28/20 17:56 97 Room Air Discharge Medications Scheduled Famotidine (Famotidine) 10 Mg Tablet, 2 TAB PO DAILY, (Reported) No.137/Iron/Folic Acd ( Vitamin Tablet) 1 Each Tablet, 1 TAB PO DAILY, (Reported) Scheduled PRN Docusate Sodium (Dok) 100 Mg Capsule, 100 MG PO QHSP PRN for CONSTIPATION Ibuprofen (Ibuprofen) 800 Mg Tablet, 800 MG PO Q8HP PRN for PAIN LEVEL 6-10 Allergies Coded Allergies: metronidazole (Verified Adverse Reaction, Mild, NAUSEA/VOMITING, 05/02/19) Rita Chavez MD Apr 29, 2020 07:16
[2020-04-29] MEDS: PRENATAL VITAMINS CHEWABLE TABLET PO SCH (09:09)
[2020-04-29] MEDS: IBUPROFEN 800 MG TAB PO PRN (09:10)
[2020-04-29 18:00] VITALS: BP 134/70
== END 2020-04-29 18:40 | disposition home or self-care (01) | DRG 560 ==
LOC: M LDI 07:22 → M OBS 04-28 00:25
PROVIDERS: ADMIT Advanced Practice Midwife; ATTEND Advanced Practice Midwife
PROC: 10E0XZZ Delivery of Products of Conception, External Approach (ICD-10-PCS; principal; 2020-04-27)
PROC: 3E0P7GC Introduction of Other Therapeutic Substance into Female Reproductive, Via Natural or Artificial Opening (ICD-10-PCS; 2020-04-27)
DX: O36.63X0 Maternal care for excessive fetal growth, third trimester, not applicable or unspecified (principal); J45.909 Unspecified asthma, uncomplicated; Z3A.39 39 weeks gestation of pregnancy; O99.52 Diseases of the respiratory system complicating childbirth; Z37.0 Single live birth

== ENCOUNTER → 2021-02-02 | Outpatient (REF) | payer OTHER, MEDICAID ==
[~2021-02-02] MED LIST changes: +DOK1CAP4 PO; +FAMO10TA50 PO
== END ==
LOC: M LAB REF 11:34
PROVIDERS: ATTEND Physician Assistant
DX: R05 Cough (principal); B34.8 Other viral infections of unspecified site

== ENCOUNTER → 2021-05-03 | Outpatient (REF) | payer OTHER, MEDICAID | LOC: M LAB REF 16:32 | PROVIDERS: ATTEND Physician Assistant | DX: R50.9 Fever, unspecified (principal); R05.9 Cough, unspecified ==

== ENCOUNTER → 2022-04-23 | Outpatient (REF) ==
[~2022-04-23] MED LIST changes: +ALBU6.7H6 INH; -PROV108A INH
[2022-04-23 13:29] LABS: RSV AMPLIFICATION NEGATIVE (NEGATIVE)
== END ==
LOC: M EMP 11:51
PROVIDERS: ATTEND Family Medicine
DX: Z20.818 Contact with and (suspected) exposure to other bacterial communicable diseases (principal)

== ENCOUNTER → 2023-08-01 | Outpatient (REF) | payer OTHER, MEDICAID ==
[2023-08-01 17:36] LABS: HEMATOCRIT 39.8 % (36.0-47.0); HEMOGLOBIN 13.2 g/dl (12.0-15.5); MEAN CORPUSCULAR HGB CONC 33.2 g/dl (32.0-36.5); MEAN CORPUSCULAR VOLUME 93.4 fl (80.0-96.0); PLATELET COUNT, AUTOMATED 208 10^3/uL (150-450); RED BLOOD COUNT 4.26 10^6/uL (4.00-5.40); WHITE BLOOD COUNT 8.6 10^3/uL (4.0-10.0)
[2023-08-01 17:53] LABS: TOTAL PROTEIN,RANDOM URINE 6.8 MG/DL (0.0-14.0)
[2023-08-01 17:59] LABS: CREATININE,RANDOM URINE 83.9 MG/DL
[2023-08-01 18:00] LABS: URIC ACID 4.1 MG/DL (3.1-7.8)
[2023-08-01 18:02] LABS: LDH LACTATE DEHYDROGENASE 138 U/L (120-246)
[2023-08-01 18:03] LABS: ALT/SGPT < 9 U/L (7.0-40); AST/SGOT < 8 U/L (<34); BILIRUBIN,TOTAL 0.6 MG/DL (0.3-1.2); CREATININE FOR GFR 0.57 MG/DL (0.55-1.30); GLOMERULAR FILTRATION RATE > 60.0 (>60)
[2023-08-01 18:29] LABS: HIV 1&2 SCREEN NEGATIVE (NEGATIVE)
[2023-08-01 18:37] LABS: HEPATITIS C VIRUS ABY INDEX < 0.02 INDEX (<0.8)
[2023-08-01 19:20] LABS: GC DNA AMPLIFICATION NEGATIVE (NEGATIVE)
== END ==
LOC: M SFHCWAGY 17:07
PROVIDERS: ATTEND Advanced Practice Midwife
DX: Z34.82 Encounter for supervision of other normal pregnancy, second trimester (principal)

== ENCOUNTER → 2023-08-14 | Outpatient (REF) | payer OTHER | LOC: M SFHCDERM 16:44 | PROVIDERS: ATTEND Physician Assistant | DX: D17.5 Benign lipomatous neoplasm of intra-abdominal organs (principal) ==

== ENCOUNTER → 2023-08-21 | Outpatient (CLI) | payer OTHER | LOC: M RAD 08:40 | PROVIDERS: ATTEND Advanced Practice Midwife | DX: Z34.82 Encounter for supervision of other normal pregnancy, second trimester (principal); Z3A.19 19 weeks gestation of pregnancy ==

== ENCOUNTER → 2023-09-03 | Outpatient (CLI) | payer OTHER | LOC: M PLALAB 15:39 | PROVIDERS: ATTEND Advanced Practice Midwife | DX: Z13.79 Encounter for other screening for genetic and chromosomal anomalies (principal) ==

== ENCOUNTER → 2023-09-05 | Outpatient (CLI) | payer OTHER | LOC: M RAD 11:00 | PROVIDERS: ATTEND Advanced Practice Midwife | DX: Z34.92 Encounter for supervision of normal pregnancy, unspecified, second trimester (principal) ==

== ENCOUNTER → 2023-10-04 | Outpatient (REF) | payer OTHER | LOC: M SFHCWAGY 15:05 | PROVIDERS: ATTEND Advanced Practice Midwife | DX: N90.89 Other specified noninflammatory disorders of vulva and perineum (principal) ==

== ENCOUNTER → 2023-10-31 | Outpatient (CLI) | payer OTHER | LOC: M PLALAB 12:19 | PROVIDERS: ATTEND Advanced Practice Midwife | DX: Z34.92 Encounter for supervision of normal pregnancy, unspecified, second trimester (principal) ==

== ENCOUNTER 2023-11-21 15:21 | Outpatient (CLI) | payer OTHER ==
[~2023-11-21] VITALS: Ht 165.1 cm; Wt 130.5 kg
[2023-11-21] MEDS ORDERED: CHEL100T4 PO (15:46)
[2023-11-21 15:52] VITALS: BP 139/72
[2023-11-21 16:05] VITALS: BP 140/77
[2023-11-21 16:30] VITALS: BP 147/72
[2023-11-21 16:59] LABS: HEMATOCRIT 35.1 % (36.0-47.0); HEMOGLOBIN 11.8 g/dl (12.0-15.5); MEAN CORPUSCULAR HEMOGLOBIN 30.7 pg (27.0-33.0); MEAN CORPUSCULAR HGB CONC 33.6 g/dl (32.0-36.5); MEAN CORPUSCULAR VOLUME 91.4 fl (80.0-96.0); PLATELET COUNT, AUTOMATED 205 10^3/uL (150-450); RED BLOOD COUNT 3.84 10^6/uL (4.00-5.40); WHITE BLOOD COUNT 10.2 10^3/uL (4.0-10.0)
[2023-11-21 17:12] VITALS: BP 137/87
[2023-11-21 17:15] LABS: URIC ACID 4.8 MG/DL (3.1-7.8)
[2023-11-21 17:15] LABS: TOTAL PROTEIN,RANDOM URINE 15.6 MG/DL (0.0-14.0)
[2023-11-21 17:18] LABS: LDH LACTATE DEHYDROGENASE 120 U/L (120-246)
[2023-11-21 17:19] LABS: ALT/SGPT 9 U/L (7.0-40); AST/SGOT < 8 U/L (<34); BILIRUBIN,TOTAL 0.7 MG/DL (0.3-1.2); CREATININE FOR GFR 0.53 MG/DL (0.55-1.30); GLOMERULAR FILTRATION RATE > 60.0 (>60)
[2023-11-21 17:19] LABS: CREATININE,RANDOM URINE 91.9 MG/DL
[2023-11-21 17:33] VITALS: BP 170/88
[2023-11-21] MEDS: BETAMETHASONE SOLUSPAN 6MG/ML 5ML VIAL IM ONE (17:44)
[2023-11-22] MEDS ORDERED: ONDA40IN IV (17:23)
== END 2023-11-21 17:43 | disposition home or self-care (01) ==
LOC: M LDO 15:21
PROVIDERS: ATTEND Specialist
DX: O13.3 Gestational [pregnancy-induced] hypertension without significant proteinuria, third trimester (principal); O98.513 Other viral diseases complicating pregnancy, third trimester; R60.9 Edema, unspecified; B00.9 Herpesviral infection, unspecified; Z87.59 Personal history of other complications of pregnancy, childbirth and the puerperium; Z88.1 Allergy status to other antibiotic agents; Z88.5 Allergy status to narcotic agent; Z3A.32 32 weeks gestation of pregnancy
CPT/HCPCS: 36415; 59025; 82247; 82570; 83615; 84156; 84450; 84460; 84550; 85027; 96372; G0463; J0702

== ENCOUNTER 2023-11-22 17:09 | Outpatient (CLI) | payer OTHER ==
[~2023-11-22] VITALS: Ht 165.1 cm; Wt 131.0 kg
[~2023-11-22 17:09] MED LIST changes: +CHEL100T4 PO
[2023-11-22] MEDS ORDERED: ONDA40IN IV (17:23)
[2023-11-22 17:24] VITALS: BP 142/77
[2023-11-22] MEDS: BETAMETHASONE SOLUSPAN 6MG/ML 5ML VIAL IM ONE (17:40)
== END 2023-11-22 17:48 | disposition home or self-care (01) ==
LOC: M LDO 17:09
PROVIDERS: ATTEND Advanced Practice Midwife
DX: O13.3 Gestational [pregnancy-induced] hypertension without significant proteinuria, third trimester (principal); Z3A.32 32 weeks gestation of pregnancy; Z87.59 Personal history of other complications of pregnancy, childbirth and the puerperium
CPT/HCPCS: 59025; 96372; G0463; J0702

== ENCOUNTER → 2023-12-18 | Outpatient (REF) | payer OTHER ==
[~2023-12-18] MED LIST changes: +ONDA40IN PO
== END ==
LOC: M SFHCWAGY 15:15
PROVIDERS: ATTEND Nurse Practitioner Women's Health
DX: Z36.85 Encounter for antenatal screening for Streptococcus B (principal); Z3A.36 36 weeks gestation of pregnancy

== ENCOUNTER 2023-12-21 08:19 | Inpatient (IN) | payer OTHER ==
[~2023-12-21] VITALS: Ht 165.1 cm; Wt 133.5 kg
[2023-12-21] VITALS (46 sets, daily range): BP systolic 95–161; BP diastolic 46–95
[2023-12-21] MEDS ORDERED: LIDOCAINE 1% MDV 20ML VIAL INFIL PRN (10:15)
[2023-12-21] MEDS ORDERED: OXYTOCIN DRIP 30 UNITS in IV 1 EA IV PRN (10:15)
[2023-12-21] MEDS ORDERED: TRANEXAMIC ACID INJection 1,000 MG in NS 100 ML IV PRN (10:15)
[2023-12-21] MEDS ORDERED: CARBOPROST TROMETHAMINE 250 MCG/ML AMP IM PRN (10:15)
[2023-12-21] MEDS: miSOPROStol 50MCG 1/2 TABLET PO SCH (10:42)
[2023-12-21 11:33] LABS: HEMATOCRIT 37.8 % (36.0-47.0); HEMOGLOBIN 12.7 g/dl (12.0-15.5); MEAN CORPUSCULAR HEMOGLOBIN 30.1 pg (27.0-33.0); MEAN CORPUSCULAR HGB CONC 33.6 g/dl (32.0-36.5); MEAN CORPUSCULAR VOLUME 89.6 fl (80.0-96.0); PLATELET COUNT, AUTOMATED 260 10^3/uL (150-450); RED BLOOD COUNT 4.22 10^6/uL (4.00-5.40)
[2023-12-21 11:44] LABS: TOTAL PROTEIN,RANDOM URINE 30.7 MG/DL (0.0-14.0)
[2023-12-21 11:49] LABS: CREATININE,RANDOM URINE 209.5 MG/DL
[2023-12-21 12:50] LABS: HEPATITIS C VIRUS ABY INDEX 0.03 INDEX (<0.8)
[2023-12-21] MEDS: LR 800 ML IV ONE (15:15)
[2023-12-21] MEDS ORDERED: NALOXONE INJ 0.4MG/1ML VIAL IV PRN (16:10)
[2023-12-21] MEDS ORDERED: LR 500 ML IV PRN (16:10)
[2023-12-21] MEDS ORDERED: ePHEDrine SULFATE 25 MG/5 ML(5MG/ML) SYRINGE IVP PRN (16:10)
[2023-12-21] MEDS ORDERED: diphenhydrAMINE 50MG/ML VIAL IV PRN (16:10)
[2023-12-21] MEDS ORDERED: EPIDURAL/PCA KEYS XX PRN (16:10)
[2023-12-21] MEDS: FENTANYL/ROPIVACAINE/NACL BAG 100 ML EPIDURAL SCH (16:44)
[2023-12-21] MEDS ORDERED: OXYTOCIN DRIP 30 UNITS in IV 1 EA IV SCH ×2 (19:55→20:50)
[2023-12-21] MEDS: LR 1,000 ML IV SCH (20:10)
[2023-12-21] MEDS ORDERED: LR 1,000 ML IV SCH (20:50)
[2023-12-21] MEDS: OXYTOCIN DRIP 30 UNITS in IV 1 EA IV SCH (21:47)
[2023-12-22] VITALS (15 sets, daily range): BP systolic 91–145; BP diastolic 51–83; O2SAT 97
[2023-12-22] MEDS: ONDANSETRON 4MG 2ML VIAL IV PRN (00:08)
[2023-12-22] MEDS ORDERED: MOM 30ML SUSPENSION UDC PO PRN (07:30)
[2023-12-22] MEDS ORDERED: IBUPROFEN 600MG TAB PO PRN (07:30)
[2023-12-22] MEDS ORDERED: DIBUCAINE 1% OINTMENT 30GM TOP PRN (07:30)
[2023-12-22] MEDS ORDERED: ACETAMINOPHEN TAB 650MG DOSE (2X325MG) PO PRN (07:30)
[2023-12-22] MEDS ORDERED: CALCIUM CARBONATE 500 MG CHEW U/D PO PRN (07:30)
[2023-12-22] MEDS ORDERED: ANUSOL HC CREAM 30GM TOP PRN (07:30)
[2023-12-22] MEDS ORDERED: DOCUSATE SODIUM 100MG CAPSULE PO PRN (07:30)
[2023-12-22] MEDS: OXYTOCIN DRIP 30 UNITS in IV 1 EA IV SCH (07:30)
[2023-12-22] MEDS: ACETAMINOPHEN 500 MG TAB PO PRN (08:41)
[2023-12-22] MEDS: PRENATAL VITAMINS CHEWABLE TABLET PO SCH (10:17)
[2023-12-22] MEDS: IBUPROFEN 800 MG TAB PO PRN (17:44)
[2023-12-23 05:05] VITALS: BP 109/58; O2SAT 97
[2023-12-23] MEDS: RHO(D) IMMUNE GLOBULIN/MALTOSE 500MCG(2500IU)/2.2ML VIAL (WINRHO) IM SCH (11:02)
[2023-12-23] MEDS ORDERED: ACET-683 PO (12:26)
[2023-12-24] MEDS ORDERED: MEASLES,MUMPS,RUBELLA VACCINE INJ (MMR-II) SC.IMMUN ONE (09:00)
== END 2023-12-23 14:00 | disposition home or self-care (01) | DRG 560 ==
LOC: M LDI 08:19 → M OBS 12-22 09:22
PROVIDERS: ADMIT Obstetrics & Gynecology; ATTEND Obstetrics & Gynecology
PROC: 3E033VJ Introduction of Other Hormone into Peripheral Vein, Percutaneous Approach (ICD-10-PCS; 2023-12-21)
PROC: 10E0XZZ Delivery of Products of Conception, External Approach (ICD-10-PCS; principal; 2023-12-22)
DX: O13.4 Gestational [pregnancy-induced] hypertension without significant proteinuria, complicating childbirth (principal); Z37.0 Single live birth; Z3A.37 37 weeks gestation of pregnancy; Z79.899 Other long term (current) drug therapy

== ENCOUNTER → 2024-01-22 | Outpatient (CLI) | payer OTHER ==
[~2024-01-22] MED LIST changes: +PROHANCE 279.3MG/ML 15ML VIAL As Ordered ONE; +PROHANCE 279.3MG/ML 5ML VIAL As Ordered ONE
== END ==
LOC: M RAD 12:41
PROVIDERS: ATTEND Student in an Organized Health Care Education/Training Program
DX: I78.0 Hereditary hemorrhagic telangiectasia (principal)
CPT/HCPCS: 70553; A9576

== ENCOUNTER → 2024-11-25 | Outpatient (CLI) | payer OTHER ==
[~2024-11-25] MED LIST changes: -PROHANCE 279.3MG/ML 15ML VIAL As Ordered ONE; -PROHANCE 279.3MG/ML 5ML VIAL As Ordered ONE
[2024-11-25 15:41] LABS: PLATELET COUNT, AUTOMATED 271 10^3/uL (150-450)
[2024-11-25 16:00] LABS: TOTAL PROTEIN,RANDOM URINE 40.5 MG/DL (0.0-14.0)
[2024-11-25 16:04] LABS: GLUCOSE CHALLENGE TEST 1 HOUR 79 MG/DL (LESS THAN 140)
[2024-11-25 16:34] LABS: HIV 1&2 SCREEN NEGATIVE (NEGATIVE)
[2024-11-25 16:42] LABS: HEPATITIS C VIRUS ABY INDEX < 0.02 INDEX (<0.8)
[2024-11-25 16:51] LABS: Trichomonas vaginalis (AMP) NOT DETECTED (NEGATIVE)
[2024-11-25 17:14] LABS: GC DNA AMPLIFICATION NEGATIVE (NEGATIVE)
== END ==
LOC: M PLALAB 12:07
PROVIDERS: ATTEND Obstetrics & Gynecology
DX: Z33.1 Pregnant state, incidental (principal)
CPT/HCPCS: 36415; 82570; 82950; 84156; 85027; 86780; 86803; 86850; 86900; 86901; 87389; 87661; 87810; 87850; J2790

== ENCOUNTER → 2024-11-27 | Outpatient (CLI) | payer OTHER | LOC: M WHC 14:25 | PROVIDERS: ATTEND Obstetrics & Gynecology | DX: Z36.2 Encounter for other antenatal screening follow-up (principal); Z3A.25 25 weeks gestation of pregnancy ==

== ENCOUNTER → 2024-12-17 | Outpatient (REF) | payer OTHER | LOC: M PLALAB 16:24 | PROVIDERS: ATTEND Advanced Practice Midwife | DX: Z53.9 Procedure and treatment not carried out, unspecified reason (principal) ==

== ENCOUNTER → 2025-01-13 | Outpatient (REF) | payer OTHER ==
[~2025-01-13] MED LIST changes: +ECOT81TA5 PO; +IRON1TAB2 PO; +LABE20TAB PO; +ONDA-282 PO
== END ==
LOC: M PLALAB 13:54
PROVIDERS: ATTEND Advanced Practice Midwife
DX: Z53.9 Procedure and treatment not carried out, unspecified reason (principal)

== ENCOUNTER → 2025-01-13 | Outpatient (CLI) | payer OTHER ==
[2025-01-13 18:48] LABS: TOTAL PROTEIN,RANDOM URINE 44.1 MG/DL (0.0-14.0)
[2025-01-13 18:54] LABS: ALT/SGPT 9 U/L (7.0-40); AST/SGOT 13 U/L (<34); CREATININE FOR GFR 0.55 MG/DL (0.55-1.30); GLOMERULAR FILTRATION RATE > 90.0 (>60); LDH LACTATE DEHYDROGENASE 158 U/L (120-246)
[2025-01-13 18:55] LABS: PLATELET COUNT, AUTOMATED 269 10^3/uL (150-450)
== END ==
LOC: M PLALAB 14:04
PROVIDERS: ATTEND Advanced Practice Midwife
DX: Z34.83 Encounter for supervision of other normal pregnancy, third trimester (principal)

== ENCOUNTER 2025-01-15 10:30 | Outpatient (CLI) | payer OTHER ==
[~2025-01-15] VITALS: Ht 165.1 cm; Wt 148.6 kg
[2025-01-15] VITALS (40 sets, daily range): BP systolic 109–192; BP diastolic 55–110
[~2025-01-15 10:30] MED LIST changes: -ECOT81TA5 PO; -IRON1TAB2 PO; -LABE20TAB PO; -ONDA-282 PO
[2025-01-15] MEDS ORDERED: IRON1TAB2 PO (10:52)
[2025-01-15] MEDS ORDERED: ECOT81TA5 PO (10:52)
[2025-01-15] MEDS ORDERED: HOME MED LIST COMPLETE! XX SCH (11:05)
[2025-01-15] MEDS: LABETALOL 200 MG TAB PO STA (12:20)
[2025-01-15] MEDS: LABETALOL 100 MG/20 ML VIAL IV STA ×4 (12:47→15:11)
[2025-01-15] MEDS: BETAMETHASONE SOLUSPAN 6 MG/ML 5 ML VIAL IM SCH (13:09)
[2025-01-15 13:27] LABS: BASO # 0.0 10^3/uL (0.0-0.2); BASO % 0.2 % (0.0-1.0); EOS # 0.1 10^3/uL (0.0-0.5); EOS % 1.2 % (0.0-3.0); LYMPH # 1.9 10^3/uL (1.5-5.0); LYMPH % 22.3 % (24.0-44.0); MONO # 0.4 10^3/uL (0.0-0.8); MONO % 4.5 % (2.0-8.0); NEUTROPHILS # 6.0 10^3/uL (1.5-8.5); NEUTROPHILS % 71.4 % (36.0-66.0); PLATELET COUNT, AUTOMATED 244 10^3/uL (150-450)
[2025-01-15 14:00] LABS: ALT/SGPT < 9 U/L (7.0-40); AST/SGOT 12 U/L (<34); CREATININE FOR GFR 0.61 MG/DL (0.55-1.30); GLOMERULAR FILTRATION RATE > 90.0 (>60); LDH LACTATE DEHYDROGENASE 152 U/L (120-246)
[2025-01-15 14:27] LABS: HIV 1&2 SCREEN NEGATIVE (NEGATIVE)
[2025-01-15 14:35] LABS: HEPATITIS C VIRUS ABY INDEX 0.05 INDEX (<0.8)
[2025-01-15] MEDS: hydrALAZINE 20 MG/ML 1 ML VIAL IV STA (15:28)
[2025-01-15] MEDS: ACETAMINOPHEN 500 MG TAB PO PRN (18:46)
[2025-01-15] MEDS: LABETALOL 200 MG TAB PO SCH (19:55)
[2025-01-16] VITALS (9 sets, daily range): BP systolic 105–139; BP diastolic 55–77
[2025-01-16] MEDS ORDERED: ONDA-282 PO (07:49)
[2025-01-16] MEDS ORDERED: HOME MED LIST COMPLETE! XX SCH (07:50)
[2025-01-16] MEDS: ONDANSETRON 4MG TAB PO ONE (11:07)
[2025-01-16] MEDS ORDERED: LABE20TAB PO (15:45)
== END 2025-01-16 16:09 | disposition home or self-care (01) ==
LOC: M LDO 10:30
PROVIDERS: ATTEND Advanced Practice Midwife
DX: O13.3 Gestational [pregnancy-induced] hypertension without significant proteinuria, third trimester (principal); O99.013 Anemia complicating pregnancy, third trimester; O99.213 Obesity complicating pregnancy, third trimester; D50.9 Iron deficiency anemia, unspecified; E66.9 Obesity, unspecified; Z3A.32 32 weeks gestation of pregnancy
CPT/HCPCS: 59025; 76816; 76819; 76820; 82247; 83615; 84450; 84460; 84550; 85025; 86780; 86803; 86850; 86870; 86900; 86901; 87389; 96372; 96374; 96375; 96376; G0463; J0360; J0702; J1920

== ENCOUNTER → 2025-02-04 | Outpatient (REF) | payer OTHER ==
[~2025-02-04] MED LIST changes: +ECOT81TA5 PO; +IRON1TAB2 PO; +LABE20TAB PO; +ONDA-282 PO
== END ==
LOC: M SFHCWAGY 17:07
PROVIDERS: ATTEND Obstetrics & Gynecology
DX: Z34.93 Encounter for supervision of normal pregnancy, unspecified, third trimester (principal); Z3A.36 36 weeks gestation of pregnancy